=== PATIENT | female | born 1940 | race Caucasian/White ===

== ENCOUNTER 2020-07-20 13:45 | Outpatient (CLI) | payer OTHER ==
[2020-07-20] MEDS ORDERED: LIDOcaine 2% 5ml jelly ONE (15:01)
== END 2020-07-20 23:59 | disposition home or self-care (01) ==
LOC: WOUND CARE 13:45
PROVIDERS: ATTEND Nurse Practitioner Family
DX: T81.89XA Other complications of procedures, not elsewhere classified, initial encounter (principal); E11.622 Type 2 diabetes mellitus with other skin ulcer; L97.812 Non-pressure chronic ulcer of other part of right lower leg with fat layer exposed; L97.121 Non-pressure chronic ulcer of left thigh limited to breakdown of skin; E11.65 Type 2 diabetes mellitus with hyperglycemia; E11.51 Type 2 diabetes mellitus with diabetic peripheral angiopathy without gangrene; I10 Essential (primary) hypertension; F32.9 Major depressive disorder, single episode, unspecified; Z90.49 Acquired absence of other specified parts of digestive tract; Z90.710 Acquired absence of both cervix and uterus; Z79.82 Long term (current) use of aspirin; Y83.8 Other surgical procedures as the cause of abnormal reaction of the patient, or of later complication, without mention of misadventure at the time of the procedure; Y92.238 Other place in hospital as the place of occurrence of the external cause
CPT/HCPCS: 11042; 36416; 82948; 87070; 87075; 97597